=== PATIENT | male | born 1935 | race Hispanic/Latino ===

== ENCOUNTER → 2019-05-29 | Day surgery (SDC) | payer BC ==
[2019-05-29] VITALS (16 sets, daily range): BP systolic 121–167; BP diastolic 60–87
[~2019-05-29] VITALS: Ht 170.2 cm; Wt 99.8 kg
[~2019-05-29] MED LIST: ACETAMINOPHEN325 M1 PO; ASPIR 8181 MG PO; ATROPINE SULFATE 0.1 MG/ML 10ML SYR ONE; CETIRIZINE HCL10 MG PO; CITALOPRAM HBR20 MG PO; CLOPIDOGREL75 MG PO; COREG3.125 MG PO; DIPHENHYDRAMINE HCL INJ 50 MG/ML VIAL ONE; FENTANYL CITRATE/PF 100MCG/2 ML INJ ONE; FUROSEMIDE40 MG PO; HEPARIN SOD/SOD CHLORIDE 2,000 ML ONE; IOPAMIDOL 370 MG/ML 200 ML INFUS..BTL INJ ONE; LASIX20 MG PO; LASIX40 MG PO; LIDOCAINE HCL 2% LOCAL 20 ML VIAL ONE; LIPITOR20 MG; LOSARTAN POTASS25 MG PO; MIDAZOLAM HCL 2 MG/2 ML VIAL ONE; NAPROXEN250 MG PO; SODIUM CHLORIDE 0.9% 1000ML 1,000 ML ONE
--- NOTE | 2019-05-29 11:30 | NUR ---
1130bedside report received from ALONZO Corado.Identiferx2. Drowsy but oriented and appropriate, PERRLA, respirations even and unlabored to room air. Pulses x4 extremities equal and strong. Pedal pulses PT/DP x4 and marked. Cap fill brisk < 3 sec. Skin warm and dry integrity appears D/I IV 20g to left hand at kvo via pump, presents healthy w/o s/s of infiltration or complaint. Abdomen soft and supple. pt offered toileting, denies need to urinate or defecate. No personal affects with patient. Family at bedside. Pt and family verbalizes understanding of POC. Sheath pull currently in progress for total hold 20min by Reuben Corado RN at standby stasis at 1140 down time and dc at 1145pm per MD orders. Currently w/o complaint of pain or need. ds/rn
--- NOTE | 2019-05-29 16:00 | NUR ---
1600 Pt meets DC criteria. rt groin assessed for s/s of complication and presence of hematoma. Skin warm, dry, no discolor, and pulses present. IV removed from left hand. Distal tip appears intact. VS WNL. Pt denies pain, sob, or need at this time. Family at XXXXX. Review of discharge paperwork and follow up instructions. verbalized understanding. Pt to wheelchair and transported to front of hospital. Transferred to private vehicle under own strength w/o incident with DC paperwork in hand. - ds/rn
--- NOTE | 2019-05-29 18:59 | Operative Report ---
DATE OF PROCEDURE: 05/29/2019 SURGEON: Adan Malloy MD TITLE OF THE PROCEDURE: Left cardiac catheterization. INDICATION: Congestive heart failure, coronary artery disease, prior PCI, angina, abnormal nuclear stress test. TECHNICAL DETAILS: After the usual sterile preparation and draping procedure, intravenous Versed and fentanyl given for sedation, local xylocaine for anesthesia, a 4-Swiss sheath established in the right common femoral artery. Espinoza left five and AL1 to engage the left main and the right coronary artery. Pigtail for hemodynamic measurement and left ventriculogram. At the end of the procedure, sheath was removed manually. Hemostasis is achieved. No complication. No blood loss subparagraph. RESULTS: A. Coronary angiogram: 1. Left main: Free of disease. 2. LAD. There is patent proximal LAD stent jailing 2nd diagonal which diffusely diseased, small in caliber. 3. Circumflex coronary artery, 50% ostial OM disease. 4. Right coronary artery. Patent stent proximally. Distally, there is 60-70% very small PDA and PLV. B. Hemodynamics: Aorta pressure 130/80, LV pressure 130/20. C. Left ventriculogram in the right on two oblique view showed generalized hypokinesis, ejection fraction of 40%. Of note, markedly dilated aortic root noted. IMPRESSION: 1. Patent right coronary artery stent with 60-70% distal PLV PDA branches diameter of 1.5 mm or less. 2. Patent LAD stent with 40% distal LAD to that 80% small diagonal, diffusely diseased. 3. Obtuse marginal with 50% stenosis, large. 4. Left ventricular ejection fraction improved from last cardiac catheterization, currently at 40 possible 45%. 5. Markedly dilated aortic root. COMPLICATIONS: None. BLOOD LOSS: None. RECOMMENDATION: Aggressive medical therapy. Adan Malloy MD MOJ/MODL /[id number]
== END | disposition home or self-care (01) ==
LOC: CATH LAB 08-29 15:14
PROVIDERS: ATTEND Internal Medicine Cardiovascular Disease
DX: I25.118 Atherosclerotic heart disease of native coronary artery with other forms of angina pectoris (principal); R94.39 Abnormal result of other cardiovascular function study; I50.22 Chronic systolic (congestive) heart failure; Z45.02 Encounter for adjustment and management of automatic implantable cardiac defibrillator; I11.0 Hypertensive heart disease with heart failure; M47.9 Spondylosis, unspecified; F41.9 Anxiety disorder, unspecified; J44.9 Chronic obstructive pulmonary disease, unspecified; Z87.891 Personal history of nicotine dependence; E78.00 Pure hypercholesterolemia, unspecified; N40.0 Benign prostatic hyperplasia without lower urinary tract symptoms; Z82.49 Family history of ischemic heart disease and other diseases of the circulatory system; Z91.041 Radiographic dye allergy status; I71.2 Thoracic aortic aneurysm, without rupture; Z95.5 Presence of coronary angioplasty implant and graft
CPT/HCPCS: 93458; C1766; J1200; J2001; J2250; J3010; J7030; Q9967